=== PATIENT | male | born 1970 | race Caucasian/White ===

== ENCOUNTER 2024-06-15 01:21 | Observation (INO) | payer OTHER, SELFPAY ==
[2024-06-14 21:39] VITALS: BMI 30.6
[2024-06-14 21:42] VITALS: BP 189/118
[2024-06-14 21:49] LABS: Glucose - Point of Care 189 mg/dl (70-99)
--- NOTE | 2024-06-14 21:59 | ED.GENMED ---
History of Present Illness
General
Chief Complaint: Vomiting Blood
Source: patient
Time Seen by Provider: 06/14/24 21:52
History of Present Illness
History of Present Illness:
This patient is a 54-year-old male with a history of hypertension, diabetes no longer insulin-dependent who has been on Ozempic for short period of time but had a recent increase in his dosing this week. He also has a history of reflux but denies a
history of ulcers or heavy nonsteroidal use. He states that since early this afternoon he has had repeated episodes of vomiting which has now become blood-tinged. He initially to triage nurse was complaining of chest discomfort which is now fully
resolved and he denies pain. He denies abdominal pain or bleeding elsewhere, shortness of breath, headache, dizziness, or other complaints.
Past History
Past History
ED Past Medical History: Other (Hypertension, diabetes, GERD)
ED Past Surgical History: Other (Hernia repair)
Social History
Tobacco: Non-smoker
Drug: None
Personal:
Living: with family
Phy Exam
Physical Exam
Physical Exam:
GENERAL: Alert , in no apparent distress, actively retching
EYE: pupils equal and reactive
NECK: Supple, no significant adenopathy.
ENT: o/p clr, mm dry
CARDIAC: Regular rate and rhythm .
LUNGS: Clear breath sounds bilaterally, no acute respiratory distress, no wheezes/rales/rhonchi
ABDOMEN: Soft, without focal tenderness, no r/g, no cvat
NEUROLOGICAL: Alert and oriented, no focal neuro deficits
SKIN: Warm and dry, skin intact.
MUSCULOSKELETAL: No edema, well perfused.
PSYCH: Normal and appropriate interaction.
Course
Orders/Labs/Results
Orders:
Orders
06/14/24 21:40
Electrocardiogram (*1) Urgent
Reason for Study: Abdominal Pain
Cardiac Monitoring- Treatment ONCE
EKG- Treatment ONCE
IV Insert/Care/Rem.- Treatment PRN
06/14/24 21:51
Type+Screen Urgent
Complete Blood Count/With Diff Urgent
Comprehensive Metabolic Panel Urgent
Lipase Urgent
Troponin I Urgent
06/14/24 21:56
Chest X-ray Portable [CR Chest Portable - 1 View] Urgent
Comment:
Reason For Exam: Chest Pain
Reason Study Needs to be Portable: Patient Unstable
06/14/24 21:57
Ondansetron Injectable [Zofran] 4 mg .ROUTE .STK-MED ONE
Pantoprazole 80 mg/100 ml Nss [Protonix] 80 mg in 100 ml .ROUTE .STK-MED
Pantoprazole [Protonix IV] 80 mg .ROUTE .STK-MED ONE
06/14/24 21:59
IV Insert/Care/Rem.- Treatment PRN
0.9% Sodium Chloride 500 ml [Nss] 500 ml IV BOLUS
Pantoprazole 80 mg/100 ml Nss [Protonix] 80 mg in 100 ml IV NOW
Pantoprazole [Protonix IV] 80 mg IV NOW STA
06/14/24 22:09
Diphenhydramine [Benadryl] 25 mg IV NOW STA
Prochlorperazine [Compazine] 10 mg IV NOW STA
06/14/24 22:49
CT Abd/pelvis W Iv Cont Urgent
Comment:
Reason For Exam: repeated blood tinged emesis
Abnormal Lab Results
06/14/24 06/14/24
21:48 21:51
WBC 13.0 H 10^3/uL
(4.8-10.8)
RBC 6.13 H 10^6/uL
(4.70-6.10)
Hgb 18.3 H g/dL
(13.0-18.0)
RDW 14.6 H %
(11.5-14.5)
Abs Immat Gran (auto) 0.1 H 10^3/uL
(0-0.05)
Absolute Neuts (auto) 10.1 H 10^3/uL
(1.4-6.5)
Absolute Monos (auto) 0.7 H 10^3/uL
(0.1-0.6)
Neutrophils % 77.6 H %
(42.2-75.2)
Lymphocytes % 15.5 L %
(20.5-51.1)
Creatinine 1.6 H mg/dL
(0.7-1.3)
Glucose 244 H mg/dl
(70-99)
Calcium 11.2 H mg/dl
(8.4-10.2)
Total Bilirubin 2.0 H mg/dl
(0.2-1.3)
POC Glucose 189 H mg/dl
(70-99)
06/14/24 21:51
06/14/24 21:51
Vital Signs
Initial and Last Documented VS:
Initial Vital Signs
Pulse Resp BP Pulse Ox
93 19 189/118 100
06/14/24 21:42 06/14/24 21:42 06/14/24 21:42 06/14/24 21:42
Last Documented Vital Signs
Temp Pulse Resp BP Pulse Ox
98.2 F 91 11 188/95 99
06/14/24 22:30 06/14/24 23:45 06/14/24 23:45 06/14/24 23:00 06/14/24 23:45
*Critical Care Note
Total Time (30-74mins, 75-104mins- exclusive of procedures): 30
Update Note
Update Note:
Patient presents to the Emergency Department with ___blood-tinged vomiting
Number and Complexity of Problems Addressed at the Encounter
� Chronic conditions affecting care: Diabetes and Ozempic use
� Acute Exacerbation and/or Progression of Chronic Illness:
� Differential Diagnosis includes: But not limited to variceal bleed, reflux, ulcer, pancreatitis, etc. etc.
Amount and/or Complexity of Data to be Reviewed and Analyzed
� I performed an independent evaluation of and my interpretation is:
EKG:read by me, nsr, lad, rbbb, no acute ischemia
CT:VISION READ...SUGGESTION OF COLITIS, NO BOWEL OBSTECTUION, MILD ESOPHAGEAL WALL THICKENING
Xrays: Chest x-ray read by me NAD
Laboratory Studies: Nonspecific leukocytosis mild renal insufficiency no prior values to compare, nonspecific hyperglycemia lipase normal
Other:
� Review of other/old records reveals: None available
� Clinical information was obtained by an independent historian: and best friend who are now bedside
� Prescriptions/Medications Considered but not given:
� Further testing considered but not performed:
Risk of Complications and/or Morbidity or Mortality of Patient Management
� Social determinants of health affecting care:
� Discussion with other providers (PCP, Hospitalists, Consultants, etc):
� Escalation of care including admission/observation vs risk of discharge considered: 10:01 PM vital signs are stable, no active bleeding, patient is mostly retching but bringing up occasional small volumes of lightly
blood-tinged liquid. No coffee-ground noted. 10:48 PM vomiting has stopped patient feeling much better again denies any pain says he occasionally gets a feeling of 'heartburn'. states that he takes 8 mg of Suboxone twice daily and has been
relatively inconsistent because he is trying not to take it. He takes it for chronic pain related to neuropathy as well as a history of OUD. Abdomen remains soft and nontender.
CT reviewed by me, bladder noted to be full, will asked patient to urinate and if not able to we will straight cath. Case discussed with Dr. STANLEY TAPIA via [facility] text for admission. Symptoms may be related to Ozempic, shelly tejeda, gastritis, mild
ulcer, alcohol use, early opioid withdrawal (although I unlikely). Stable.
ED Attending Note
-
Portions of this chart may have been created with voice recognition software.� Occasional wrong word or��sound alike� substitutions may have occurred due to the inherent limitations of voice recognition software.
Discharge Plan
Departure
Patient Disposition: Admit
Date of Disposition: 06/15/24
Time of Disposition: 00:03
Admit to: Telemetry
Admit to doctor: salas
Presentation/result/management discussed w/ accepting MD/DO: Hospitalist
Condition: Fair
Discharge Problem:
Hematemesis
Referrals:
UNKNOWN - PT DOES,NOT KNOW [Family Provider] -
Interventions
Interventions:
*Risk Screen - Suicide Last Done: 06/14/24 21:42
*General Assessment Last Done: 06/14/24 21:42
*Neglect/Abuse Screening Last Done: 06/14/24 21:42
ED- Fall Risk Assessment Last Done: 06/14/24 21:54
*ED COVID-19 Vaccine History Last Done: 06/14/24 22:24
TJ-Kyjnpp-Pmvtvqsaah Assessment Last Done: 06/14/24 21:54
ED- Cardiac Assessment Last Done: 06/14/24 21:54
ED- Pulmonary Assessment Last Done: 06/14/24 21:54
Discharge Date and Time
Print Language: LIBYAN
[2024-06-14] MEDS: NSS 500 IV (22:00)
[2024-06-14 22:01] LABS: % Basophils 0.4 % (0-2); % Eosinophils 0.7 % (0-6); % Immature Granulocytes 0.4 % (0-0.5); % Lymphocytes 15.5 % (20.5-51.1); % Monocytes 5.4 % (1.7-9.3); % Neutrophils 77.6 % (42.2-75.2); Absolute Basophils 0.1 10^3/uL (0-0.2); Absolute Eosinophils 0.1 10^3/uL (0-0.7); Absolute Immature Granulocytes 0.1 10^3/uL (0-0.05); Absolute Monocytes 0.7 10^3/uL (0.1-0.6); Absolute Neutrophils 10.1 10^3/uL (1.4-6.5); Hematocrit 51.6 % (39.0-52.0); Hemoglobin 18.3 g/dL (13.0-18.0); Mean Corp Hgb Conc. 35.5 g/dL (33.0-37.0); Mean Corpuscular Hgb 29.9 pg (27.0-31.0); Mean Corpuscular Volume 84.2 fL (80.0-94.0); Nucleated Red Blood Cells % 0 % (-); Platelet Count 269 10^3/uL (130-400); Red Blood Cell Count 6.13 10^6/uL (4.70-6.10); Red Cell Dist. Width 14.6 % (11.5-14.5)
[2024-06-14] MEDS: PROTONIX IV 80 MG IV (22:01)
[2024-06-14] MEDS: PROTONIX 100 IV (22:01)
[2024-06-14] MEDS: BENADRYL 25 MG IV (22:14)
[2024-06-14] MEDS: COMPAZINE 10 MG IV (22:14)
[2024-06-14 22:25] LABS: ALT (SGPT) 30 U/L (0-50); AST (SGOT) 33 U/L (17-59); Albumin 4.7 g/dl (3.5-5.0); Alkaline Phosphatase 115 U/L (38-126); Blood Urea Nitrogen 17 mg/dl (9-20); Calcium 11.2 mg/dl (8.4-10.2); Carbon Dioxide 26 mmol/L (22-30); Chloride 100 mmol/L (98-107); Estimated Creatinine Clearance 51 ml/min; Glucose 244 mg/dl (70-99); Lipase 54 U/L (23-300); Potassium 4.4 mmol/L (3.5-5.1); Sodium 135 mmol/L (135-145); Total Protein 7.1 g/dl (6.3-8.2); eGFR 50.26
[2024-06-14 22:26] LABS: Troponin I < 0.012 ng/ml
[2024-06-14 23:00] VITALS: BP 188/95
[2024-06-15] VITALS: BP 200/99
--- NOTE | 2024-06-15 00:43 | HPS.HSE ---
Family Physician
-
Family Physician: NOT KNOW UNKNOWN - PT DOES
Chief Complaint
-
N/V
History of Present Illness
Patient is a 54y M with PMH significant for hypertension and DM-II who presents to ED complaining of N/V. Patient states that he was nauseated and had a single episode of emesis last PM. Today he ate a sandwich around 2 PM and his N/V returned.
He had intractable symptoms of N/V with burning epigastric pain. he then began to 'dry heave' and had emesis consisting of small amounts of saliva / sputum mixed with bright red blood. Patient reports small amounts of blood streaked emesis. No
clots. No lightheadedness / dizziness. No diarrhea, black or bloody stools. Patient denies any prior history of similar symptoms.
Patient states that he is on Ozempic and that his dose was recently increased to 1mg weekly. He took this for the first time on Saturday and states that he immediately felt 'flushed and sweaty'.
Medical History
Past Medical History
Past Medical History: Reports Other
Additional Past Medical History:
Hypertension
DM-II
Anxiety / Depression
Past Surgical History: Reports Other
Additional Past Surgical History:
Hernia Repair
Social History
Tobacco: Smoker (Current every day smoker. Approx 30 pack years total use.)
Alcohol: None (Quit drinking entirely after diagnosed with DM.)
Drug: Former User (History of opioid abuse. No IVDA. Sober x 6 years.)
Family History
Family History: CAD
Allergies / Home Medications
Allergies reflects when Allergies were last updated in [employer].
Home Medications with original date entered in [employer]
Allergy/Medication List:
Allergies
Allergy/AdvReac Type Severity Reaction Status Date / Time
No Known Allergies Allergy Unverified 06/14/24 21:42
Home Medications
lisinopril 10 mg tablet 10 mg PO DAILY 06/15/24
omeprazole 20 mg tablet,delayed release 20 mg PO DAILY 06/15/24
quetiapine 50 mg tablet (Seroquel) 100 mg PO HS 06/15/24
semaglutide 1 mg/dose (4 mg/3 mL) subcutaneous pen injector (Ozempic) 1 mg SC QWEEK 06/15/24
Review of Systems
-
History Source: Patient
A 12 point ROS was completed and negative except as noted: Yes
Constitutional: Reports Fatigue; Denies Fever or Chills
Respiratory: Denies Cough or Trouble Breathing
Cardiac: Denies Chest Pain or Palpitations
Abdomen/GI: Reports Abdominal Pain (burning epigastric pain.), Nausea and Vomiting; Denies Diarrhea, Constipated, Bloody Stools or Black Stools
: Denies Dysuria or Frequency
Musculoskeletal: Denies Joint Pain or Edema
Neurological: Denies Dizzy or Headache
Psych: Denies Depression or Anxiety
Physical Exam
Vital Signs
Vital Signs
Temp Pulse Resp BP Pulse Ox
98.2 F 91 11 200/99 100
06/14/24 22:30 06/15/24 00:15 06/14/24 23:45 06/15/24 00:00 06/15/24 00:15
Physical Exam
General: Other (54y M in no acute distress.)
HEENT: Moist mucous membranes and PERRLA
Respiratory: Clear; No Wheezes, Rales or Rhonchi
Cardiac: S1/S2 and Regular Rhythm; No Murmur
GI: Soft, Non Tender, Non Distended and Normal Bowel Sounds
Musculoskeletal: No Clubbing, No Cyanosis and No Edema
Neuro: AO x 3
Laboratory Results
-
06/14/24 21:51
06/14/24 21:51
Laboratory Results
Total Bilirubin 2.0 mg/dl (0.2-1.3) H 06/14/24 21:51
AST 33 U/L (17-59) 06/14/24 21:51
ALT 30 U/L (0-50) 06/14/24 21:51
Alkaline Phosphatase 115 U/L (38-126) 06/14/24 21:51
Troponin I < 0.012 ng/ml 06/14/24 21:51
Lipase 54 U/L (23-300) 06/14/24 21:51
Impression/Plan
-
A/P: Patient is a 54y M with PMH significant for hypertension and DM-II who presents to ED complaining of N/V x 24 hours.
Intractable N/V
Blood Streaked Emesis
GERD
- Observe overnight for further evaluation and treatment.
- Symptoms very likely secondary to recent dose increase in Ozempic - hold further doses.
- Supportive care including IVFs, antiemetics, etc.
- PPI infusion started in the ED - change to BID PPI once completed.
- GI evaluation for any additional recommendations / possible endoscopic examination.
- Patient reports chronic / poorly controlled symptoms of GERD / heartburn.
- Follow for any further emesis, bleeding, etc.
- Hemodynamically stable (actually hypertensive and polycythemic).
Benign Hypertension
- Poorly controlled- likely in part due to acute presentation, but suspect chronic poor control as well.
- Hold lisinopril for now (see below).
- Begin amlodipine and adjust dose as needed.
- Hydralazine as needed for very high BPs.
Renal Insufficiency
- SCr = 1.6 with no prior values for comparison. ? DAPHNEY v CKD.
- Certainly possible degree of DAPHNEY given emesis / volume losses and MJ use.
- Hold lisinopril acutely.
- IVF overnight and follow for changes in renal function.
DM-II
- Currently diet-controlled. Prescribed metformin but does not take this as he feels it exacerbates his GERD.
- Patient has DEXCOM and notes that glucose has been well-controlled on no medication (even before beginning Ozempic).
- Hold Ozempic as noted above.
- Follow glucose and cover with SSI as needed.
- Check A1C.
DVT Prophylaxis: SCDs
Code Status: Full
[2024-06-15 01:00] VITALS: BP 184/97
[2024-06-15 02:33] LABS: Glucose - Point of Care 129 mg/dl (70-99)
[2024-06-15 02:41] VITALS: BMI 29.5
[2024-06-15 02:42] VITALS: BP 141/92; BP 156/96; BP 172/90; PULSE 86; PULSE 89; PULSE 97
[2024-06-15] MEDS: ZOFRAN 4 MG IV (02:44)
[2024-06-15] MEDS: NSS 1000 IV ×3 (03:26→18:00)
[2024-06-15 04:25] LABS: Hematocrit 51.4 % (39.0-52.0); Hemoglobin 17.7 g/dL (13.0-18.0); Mean Corp Hgb Conc. 34.4 g/dL (33.0-37.0); Mean Corpuscular Hgb 29.3 pg (27.0-31.0); Mean Corpuscular Volume 85.1 fL (80.0-94.0); Mean Platelet Volume 10.4 fL (7.4-10.4); Platelet Count 266 10^3/uL (130-400); Red Blood Cell Count 6.04 10^6/uL (4.70-6.10); Red Cell Dist. Width 14.4 % (11.5-14.5); White Blood Cell Count 19.1 10^3/uL (4.8-10.8)
[2024-06-15 05:08] LABS: Blood Urea Nitrogen 18 mg/dl (9-20); Calcium 10.6 mg/dl (8.4-10.2); Carbon Dioxide 27 mmol/L (22-30); Chloride 102 mmol/L (98-107); Estimated Creatinine Clearance 62 ml/min; Glucose 140 mg/dl (70-99); Potassium 4.8 mmol/L (3.5-5.1); Sodium 138 mmol/L (135-145); eGFR > 60.00
[2024-06-15 06:00] VITALS: BMI 29.5
--- NOTE | 2024-06-15 07:34 | PTCARENOTE ---
Pt admitted to the unit from ED with Protonix gtt infusing. Pt ambulated self with nursing staff to bed. Once in bed, pt reported feeling lightheaded and dizzy. Pt educated to use urinal, to stay in bed, and to use the call guillen. Pt vomited
thick/thin green liquid. Medication administered. See MAR. Pt oriented to room with call guillen in reach. Plan of care ongoing.
[2024-06-15 07:40] VITALS: BP 146/89
[2024-06-15 08:36] LABS: Glycohemoglobin (HgbA1c) 7.7 % (4.0-5.6)
[2024-06-15 08:39] LABS: Glucose - Point of Care 161 mg/dl (70-99)
--- NOTE | 2024-06-15 08:45 | W.PN.HOSP.TC ---
Today's Communication/Plan
-
Antiemetics, Subotex, Sucralfate.
Assessment / Plan
Assessment / Plan
Physical exam:
General: Well Developed, Well Nourished and No Apparent Distress
HEENT: Normocephalic, Atraumatic and Moist Mucous Membranes
Respiratory: Clear to Auscultation; Negative Wheezes, Rales or Rhonchi
Cardiac: Regular Rhythm and S1/S2
GI: Soft, Nontender and Nondistended
Musculoskeletal: No Clubbing, No Cyanosis and No Edema
Neuro: Awake, Alert and Oriented
Psych: Calm
A/P:
Intractable N/V
Blood Streaked Emesis
GERD
- Observe overnight for further evaluation and treatment.
- Symptoms very likely secondary to recent dose increase in Ozempic - hold further doses.
- Supportive care including IVFs, antiemetics, etc.
- PPI infusion started in the ED - change to BID PPI once completed.
- GI evaluation for any additional recommendations / possible endoscopic examination.
- Patient reports chronic / poorly controlled symptoms of GERD / heartburn.
- Follow for any further emesis, bleeding, etc.
- Hemodynamically stable (actually hypertensive and polycythemic).
- Discussed with GI today
-CLD
-Avoid narcotics but resume his OP Subutex to avoid withdrawal
-Anabolics have demonstrated slight increased risk of a fib, vte, and daphney but can resume upon d/c if deemed necessary
Benign Hypertension
- Poorly controlled- likely in part due to acute presentation, but suspect chronic poor control as well.
- Hold lisinopril for now (see below).
- Begin amlodipine and adjust dose as needed.
- Hydralazine as needed for very high BPs.
Renal Insufficiency
- SCr = 1.6 with no prior values for comparison. ? DAPHNEY v CKD.
- Certainly possible degree of DAPHNEY given emesis / volume losses and MJ use.
- Hold lisinopril acutely.
- IVF overnight and follow for changes in renal function.
DM-II
- Currently diet-controlled. Prescribed metformin but does not take this as he feels it exacerbates his GERD.
- Patient has DEXCOM and notes that glucose has been well-controlled on no medication (even before beginning Ozempic).
- Hold Ozempic as noted above.
- Follow glucose and cover with SSI as needed.
- Check A1C.
DVT Prophylaxis: SCDs
Code Status: Full
Anticipated Discharge: 24 - 48 hours
Subjective/Interval History
-
Date of Service: June 15, 2024
still nauseous and c/o heartburn
Objective Data
-
Labs:
Laboratory Results
06/14/24 06/15/24 06/15/24
21:51 04:14 04:15
WBC 13.0 H 19.1 H
Hgb 18.3 H 17.7
Hct 51.6 51.4
Plt Count 269 266
Sodium 135 138
Potassium 4.4 4.8
Chloride 100 102
Carbon Dioxide 26 27
BUN 17 18
Creatinine 1.6 H 1.3
Glucose 244 H 140 H
Calcium 11.2 H 10.6 H
Total Bilirubin 2.0 H
AST 33
ALT 30
Alkaline Phosphatase 115
Vital Signs:
Vital Signs
Temp Pulse Resp BP Pulse Ox
98.8 F 99 19 146/89 97
06/15/24 07:40 06/15/24 07:40 06/15/24 07:40 06/15/24 07:40 06/15/24 07:40
I&O
06/14/24 06/15/24 06/16/24
06:59 06:59 06:59
Output Total 100 / 100 70 / 70
Balance -100 / -100 -70 / -70
[2024-06-15] MEDS: NOVOLOG FLEXPEN-LOW RESISTANCE 1 UNITS SC ×3 (09:42→18:00)
[2024-06-15] MEDS: NORVASC 5 MG PO (09:42)
[2024-06-15] MEDS: COMPAZINE 10 MG IV ×2 (09:43→20:21)
--- NOTE | 2024-06-15 09:57 | CON.GI ---
Addendum entered and electronically signed by Erinn Perez DO 06/15/24 11:28:
I saw and examined the patient.
The DISPENSING AUDIOLOGIST or PA's note was reviewed and I agree with the note.
Comment: Agree with assessment and plan as outlined below. Suspect recent dose increase in Ozempic is playing a self role in current symtpoms. I do not feel he had real hematemesis, likely some esophagitis, which correlates to findings on CT scan.
Possibly some viral gastroenteritis as does seem to have severe sweats, chills and leukocytosis-- though could be leukamoid reaction. Labs with hemoconcentration, so definitely dehydrated. Recommend PPI, antiemetics. Total bilirubin mildly elevated
to 2.0, check direct bilirubin, could be [place], all other liver enzymes are normal.
Plan:
-check direct bili
-supportive care
-PPI, antiemetics
-no plans for inpatient EGD as no signs of active bleeding and need to wait 1 week following Ozempic for nonurgent EGD per anesthesia, would plan to pursue endoscopic eval as an outpatient unless he develops signs of active GI bleeding
-needs screening colonoscopy as well
Original Note:
Consultation
-
Date/Time Consultation Requested: 06/15/24 0229
Date/Time Consultation Performed: 06/15/24 1004
Requesting Provider: Dr. Barker
Performing Provider: Dr. Perez/LANA Garay
Reason for Consultation: N/V coffee ground emesis
Medical History
Chief Complaint / HPI
Chief Complaint: n/v
History of Present Illness:
54-year-old male with past medical history of hypertension, hyperlipidemia, GERD, neuropathy, anxiety and diabetes recent A1c of 9 (approximately 3 months ago). He was started on Ozempic at that time. He recently increased his dose from 0.5 to 1
mg last . The patient also uses testosterone as well as the anabolic steroid Masteron for bodybuilding. Patient has a prior history of drug abuse in the form of cocaine and heroin in the past. He states he has been sober for 6 years. He
states he usually has nausea, early satiety and intermittent vomiting associated with Ozempic since starting it however with this increased dose he had significant symptoms. The patient states for the past 18 hours he has had constant vomiting that
started out as green bile. He he then had some red streaks of blood that he noticed in it followed by brown emesis. At that point he came to the ER. We are asked to evaluate for the same. He was given Compazine in the ER followed by Kristi and
continues to vomit at this time. This morning I witnessed him vomiting that was green bile with less than 5 brown specks. Patient states he has had approximately 20-year history of heartburn and takes omeprazole daily. The patient is a daily
smoker. Prior alcohol however none since diagnosed with diabetes. The patient has never had an EGD or colonoscopy. He has never been seen by GI. He has no family history of GI malignancy that he is aware of however he states he has been
estranged from his family for 30 years. The patient states that he has chills when he is vomiting otherwise he denies any fevers, abdominal pain, melena, hematochezia, dysphagia or odynophagia. WBC 19.1, hemoglobin 17.7 down from 18.3 with IV
fluids, hematocrit 51.4, platelets 266, sodium 138, potassium 4.8, chloride 102, CO2 27, BUN 18, creatinine 1.3 (down from 1.6), glucose 140 down from 244, hemoglobin A1c 7.7, calcium 10.6, total bilirubin 2.0 (awaiting fractionation), AST 33, ALT
30, alk phos 115 troponin less than 0.012, lipase 54. CT of the abdomen and pelvis with IV contrast shows small hiatal hernia with some fatty wall thickening of the distal esophagus which can be seen in the setting of esophagitis (Please see below
for full CT report).
Past Medical History
Past Medical History: GERD, HTN, Hypercholesterolemia, NIDDM and Other (Neuropathy, anxiety)
Past Surgical History: Other (Umbilical hernia repair)
Social History
Tobacco: Smoker
Alcohol: Former
Drug: Former User (Heroin and cocaine, quit 6 years ago)
Family History
Family History: Other (No known family history of GI issues or inflammatory bowel disease although has been estranged from family for 30 years)
Allergies / Home Medications
Allergy/AdvReac Type Severity Reaction Status Date / Time
No Known Allergies Allergy Unverified 06/14/24 21:42
�Medication �Instructions �Recorded
lisinopril 10 mg tablet 10 mg PO DAILY 06/15/24
omeprazole 20 mg tablet,delayed 20 mg PO DAILY 06/15/24
release
quetiapine 50 mg tablet (Seroquel) 100 mg PO HS 06/15/24
semaglutide 1 mg/dose (4 mg/3 mL) 1 mg SC QWEEK 06/15/24
subcutaneous pen injector (Ozempic)
Review of Systems
-
All other systems: A 12 pt ROS was Negative except as stated above in HPI
Vital Signs
Temp Pulse Resp BP Pulse Ox
98.8 F 99 19 146/89 97
06/15/24 07:40 06/15/24 07:40 06/15/24 07:40 06/15/24 07:40 06/15/24 07:40
Physical Exam
Exam
General: Other (Patient actively vomiting, overly developed muscles)
HEENT: Anicteric
Respiratory: Clear
Cardiac: Regular Rhythm
GI: Soft, Non Tender, Non Distended and Normal Bowel Sounds
Musculoskeletal: No Edema
Skin: Warm and Dry
Psych: Calm
Results
WBC 19.1 10^3/uL (4.8-10.8) H 06/15/24 04:15
Hgb 17.7 g/dL (13.0-18.0) 06/15/24 04:15
Hct 51.4 % (39.0-52.0) 06/15/24 04:15
MCV 85.1 fL (80.0-94.0) 06/15/24 04:15
Plt Count 266 10^3/uL (130-400) 06/15/24 04:15
Absolute Neuts (auto) 10.1 10^3/uL (1.4-6.5) H 06/14/24 21:51
Sodium 138 mmol/L (135-145) 06/15/24 04:14
Potassium 4.8 mmol/L (3.5-5.1) 06/15/24 04:14
Chloride 102 mmol/L (98-107) 06/15/24 04:14
Carbon Dioxide 27 mmol/L (22-30) 06/15/24 04:14
BUN 18 mg/dl (9-20) 06/15/24 04:14
Creatinine 1.3 mg/dL (0.7-1.3) 06/15/24 04:14
Calcium 10.6 mg/dl (8.4-10.2) H 06/15/24 04:14
Total Bilirubin 2.0 mg/dl (0.2-1.3) H 06/14/24 21:51
AST 33 U/L (17-59) 06/14/24 21:51
ALT 30 U/L (0-50) 06/14/24 21:51
Alkaline Phosphatase 115 U/L (38-126) 06/14/24 21:51
Lipase 54 U/L (23-300) 06/14/24 21:51
Diagnostic Image Results:
Chest x-ray:
IMPRESSION:
No evidence of active cardiopulmonary disease.
CT of the abdomen and pelvis with IV contrast 06/14/2024:
IMPRESSION:
Small hiatal hernia with circumferential wall thickening of the distal esophagus which can be seen in the setting of esophagitis.
Decompressed descending and descending colon without significant wall thickening or surrounding inflammatory changes to suggest the presence of colitis or diverticulitis.
Small fat-containing left inguinal hernia with mild superimposed inflammatory changes.
A preliminary interpretation was provided by [facility] teleradiology service. The above report agrees with the initial interpretation.
Electronically signed by Alejandro Stearns DO, 06/15/2024 8:57 AM
Prior GI Procedures:
EGD: Never
Colonoscopy: Never
Assessment / Plan
-
54-year-old male with past medical history of hypertension, hyperlipidemia, GERD, neuropathy, anxiety and diabetes recent A1c of 9 (approximately 3 months ago). He was started on Ozempic at that time. He recently increased his dose from 0.5 to 1
mg last . The patient also uses testosterone as well as the anabolic steroid Masteron for bodybuilding. Patient has a prior history of drug abuse in the form of cocaine and heroin in the past. He states he has been sober for 6 years. He
states he usually has nausea, early satiety and intermittent vomiting associated with Ozempic since starting it however with this increased dose he had significant symptoms. The patient states for the past 18 hours he has had constant vomiting that
started out as green bile. He he then had some red streaks of blood that he noticed in it followed by brown emesis. At that point he came to the ER. We are asked to evaluate for the same. WBC 19.1, hemoglobin 17.7 down from 18.3 with IV fluids,
hematocrit 51.4, platelets 266, sodium 138, potassium 4.8, chloride 102, CO2 27, BUN 18, creatinine 1.3 (down from 1.6), glucose 140 down from 244, hemoglobin A1c 7.7, calcium 10.6, total bilirubin 2.0 (awaiting fractionation), AST 33, ALT 30, alk
phos 115 troponin less than 0.012, lipase 54. CT of the abdomen and pelvis with IV contrast shows small hiatal hernia with some fatty wall thickening of the distal esophagus which can be seen in the setting of esophagitis.
Impression:
Intractable nausea and vomiting-> likely secondary to recent increase in Ozempic dose. Patient injected on (1 mg)
Inability to tolerate oral intake
Self-reported streaks of red blood, currently bilious in nature with a few specks less than 5 of coffee-ground material
Diabetes-> per patient A1c of 9 3 months ago. Currently 7.7
GERD-> 20-year history of gastroesophageal reflux disease on omeprazole as an outpatient with worsening symptoms since starting Ozempic.
Plan:
-Continue pantoprazole, can decrease to 40 mg IV twice daily
-Await fractionation of bilirubin
-Trend hemoglobin
-IV fluids as patient cannot tolerate p.o. intake-> currently on normal saline at 125 cc an hour
-Antiemetics, patient had 1 dose of Compazine last night and switched over to Zofran with breakthrough nausea and vomiting. Will retry Compazine again. If breakthrough with Compazine will give 1 dose of Reglan to see if this works.
-Would minimize narcotic use. Currently no abdominal pain to palpation. Narcotics worsen gastric motility.
-Hold on EGD for now as no active signs of bleeding. If with active signs of bleeding will proceed with EGD. Otherwise we will perform as an outpatient.
-Patient also needs colonoscopy for screening purposes as an outpatient as well.
-Further recommendations to be forthcoming.
-
-
Thank you for consultation and allowing me to participate in the patient's care. Please call the english as a second language teacher GI physician during the after hours with any questions or concerns.
[2024-06-15 10:40] LABS: Direct Bilirubin 0.3 mg/dl (0.0-0.4)
[2024-06-15 11:40] LABS: Glucose - Point of Care 172 mg/dl (70-99)
--- NOTE | 2024-06-15 12:11 | CM ---
IA completed. Observation form signed & placed in chart.
Dx: Gastritis/Esophagitis
PMH: HTN, DMII, anxiety, depression
Patient lives with in trailer. 3 steps to get in,
PLOF: Independent, driving
Concerns of buying food, paying utilities.
[employer] resources given to patient.
Food pantry, help pay for utilities.
Discharge to home when stable. or friend to transport.
PCP: Erica Pritchett
Pharmacy: [facility]
PLAN: Discharge to home when stable.
[2024-06-15] MEDS: SUBUTEX 8 MG SL ×2 (13:10→21:12)
[2024-06-15 14:25] VITALS: BP 144/67
[2024-06-15] MEDS: CARAFATE 1 GRAM PO ×3 (14:47→22:39)
[2024-06-15 16:57] LABS: Glucose - Point of Care 172 mg/dl (70-99)
[2024-06-15 21:25] LABS: Glucose - Point of Care 141 mg/dl (70-99)
[2024-06-15] MEDS: NON-FORMULARY ITEM 100 MG PO (22:41)
[2024-06-15 23:10] VITALS: BP 159/83; BP 172/87; BP 187/96; PULSE 92; PULSE 93
--- NOTE | 2024-06-16 01:53 | PTCARENOTE ---
~00:40 nursing staff heard pt yell out. Nursing staff found pt laying across the bed with legs hanging out of bed. Pt reported 'I feel like I'm on the wall. I need some air. I'm having a panic attack.' Notified covering DESULFURIZER OPERATOR. No new orders at this
time. Standing next to bed, pt vomited brownish/green emesis. Pt admitted d/t vomiting. Pt reported 'I need some air.' This RN suggested walking the halls and walked with the pt. Pt spoke with on his cell while walking the hilario. Upon returning
to room, pt reported feeling better. Fan set up to keep pt cool. Plan of care ongoing.
[2024-06-16] MEDS: NSS 1000 IV ×3 (03:50→18:07)
[2024-06-16 07:17] LABS: Glucose - Point of Care 135 mg/dl (70-99)
[2024-06-16 07:38] VITALS: BP 118/58
[2024-06-16] MEDS: SUBUTEX 8 MG SL ×2 (07:39→20:23)
[2024-06-16] MEDS: NORVASC 5 MG PO (07:39)
[2024-06-16] MEDS: COMPAZINE 10 MG IV (07:40)
[2024-06-16] MEDS: CARAFATE 1 GRAM PO ×4 (07:40→22:04)
[2024-06-16] MEDS: NOVOLOG FLEXPEN-LOW RESISTANCE SC ×2 (07:41→12:37)
[2024-06-16 07:59] LABS: Hematocrit 47.3 % (39.0-52.0); Hemoglobin 16.1 g/dL (13.0-18.0); Mean Corpuscular Hgb 29.5 pg (27.0-31.0); Mean Corpuscular Volume 86.6 fL (80.0-94.0); Mean Platelet Volume 10.1 fL (7.4-10.4); Platelet Count 232 10^3/uL (130-400); Red Blood Cell Count 5.46 10^6/uL (4.70-6.10); Red Cell Dist. Width 14.6 % (11.5-14.5)
[2024-06-16 08:59] LABS: Blood Urea Nitrogen 19 mg/dl (9-20); Calcium 8.8 mg/dl (8.4-10.2); Carbon Dioxide 29 mmol/L (22-30); Chloride 105 mmol/L (98-107); Estimated Creatinine Clearance 73 ml/min; Glucose 142 mg/dl (70-99); Sodium 138 mmol/L (135-145); eGFR > 60.00
--- NOTE | 2024-06-16 09:10 | W.PN.HOSP.TC ---
Today's Communication/Plan
-
CLD
Assessment / Plan
Assessment / Plan
Physical exam:
General: Well Developed, Well Nourished and No Apparent Distress
HEENT: Normocephalic, Atraumatic and Moist Mucous Membranes
Respiratory: Clear to Auscultation; Negative Wheezes, Rales or Rhonchi
Cardiac: Regular Rhythm and S1/S2
GI: Soft, Nontender and Nondistended
Musculoskeletal: No Clubbing, No Cyanosis and No Edema
Neuro: Awake, Alert and Oriented
Psych: Calm
A/P:
Intractable N/V
Blood Streaked Emesis
GERD
- GI input appreciated
-Continue PPI and Carafate
-CLD-->NPO--> CLD trial again today
-Avoid narcotics but resume his OP Subutex to avoid withdrawal
-If worsens may need to implement opiate withdrawal
-Anabolics have demonstrated slight increased risk of a fib, vte, and daphney but can resume upon d/c if deemed necessary
Leukocytosis
-Reactive
-WBC 19---> 11
Benign Hypertension
- Improved
- Hold lisinopril for now (see below).
- Begin amlodipine and adjust dose as needed.
- Hydralazine as needed for very high BPs.
DAPHNEY
-Creatinine 1.1 today
-Continue IV fluids but decrease rate
-Creatinine 1.6 upon admission
-Avoid nephrotoxic
Hypercalcemia
Resolved with fluids
DM-II
- Currently diet-controlled. Prescribed metformin but does not take this as he feels it exacerbates his GERD.
- Patient has DEXCOM and notes that glucose has been well-controlled on no medication (even before beginning Ozempic).
- Hold Ozempic as noted above.
- Follow glucose and cover with SSI as needed.
- Check A1C--> 7.7
DVT Prophylaxis: SCDs
Code Status: Full
Anticipated Discharge: 24 - 48 hours
Subjective/Interval History
-
Date of Service: June 16, 2024
Patient with nausea on and off. Feels anxious.
Objective Data
-
Labs:
Laboratory Results
06/16/24
07:37
WBC 11.0 H
Hgb 16.1
Hct 47.3
Plt Count 232
Sodium 138
Potassium 4.0
Chloride 105
Carbon Dioxide 29
BUN 19
Creatinine 1.1
Glucose 142 H
Calcium 8.8 D
Vital Signs:
Vital Signs
Temp Pulse Resp BP Pulse Ox
98.3 F 89 18 118/58 98
06/16/24 07:38 06/16/24 07:38 06/16/24 07:38 06/16/24 07:38 06/16/24 07:38
I&O
06/15/24 06/16/24 06/17/24
06:59 06:59 06:59
Intake Total 1740 / 1740
Output Total 100 / 100 1545 / 1545
Balance -100 / -100 195 / 195
--- NOTE | 2024-06-16 10:18 | W.PN.GI.CBS2 ---
Addendum entered and electronically signed by Erinn Perez DO 06/16/24 12:24:
I saw and examined the patient.
The SLOT MACHINE REPAIRER or PA's note was reviewed and I agree with the note.
Comment: Agree with plan as outlined below. Optimize acid suppression, can add carafate QID x1-2 weeks as needed. Likely 2/2 Ozempic use. There does seem to be a component of withdrawal on exam. Evidence of distal esophageal thickening, should
pursue EGD as an outpatient, this can be seen with esophagitis, but should rule out alterative etiologies such as Barretts esophagus or malignancy. Information for the GI clinic was provided to patient and he was advised to schedule an appointment
with us. He also requires a colonoscopy for CRC screening.
GI will sign off, please call with questions.
Original Note:
Today's Communication / Plan
-
as per plan
Assessment / Plan
-
54-year-old male with past medical history of hypertension, hyperlipidemia, GERD, neuropathy, anxiety and diabetes recent A1c of 9 (approximately 3 months ago). He was started on Ozempic at that time. He recently increased his dose from 0.5 to 1
mg last . The patient also uses testosterone as well as the anabolic steroid Masteron for bodybuilding. Patient has a prior history of drug abuse in the form of cocaine and heroin in the past. He states he has been sober for 6 years. He
states he usually has nausea, early satiety and intermittent vomiting associated with Ozempic since starting it however with this increased dose he had significant symptoms. The patient states for the past 18 hours he has had constant vomiting that
started out as green bile. He he then had some red streaks of blood that he noticed in it followed by brown emesis. At that point he came to the ER. We are asked to evaluate for the same. WBC 19.1, hemoglobin 17.7 down from 18.3 with IV fluids,
hematocrit 51.4, platelets 266, sodium 138, potassium 4.8, chloride 102, CO2 27, BUN 18, creatinine 1.3 (down from 1.6), glucose 140 down from 244, hemoglobin A1c 7.7, calcium 10.6, total bilirubin 2.0 (awaiting fractionation), AST 33, ALT 30, alk
phos 115 troponin less than 0.012, lipase 54. CT of the abdomen and pelvis with IV contrast shows small hiatal hernia with some fatty wall thickening of the distal esophagus which can be seen in the setting of esophagitis.
Impression:
Intractable nausea and vomiting-> likely secondary to recent increase in Ozempic dose. Patient injected on (1 mg). Recommend follow up with PCP to discuss dosing going forward.
Inability to tolerate oral intake, trialed clears last evening unable to tolerate.
Self-reported streaks of red blood, currently bilious in nature with a few specks less than 5 of coffee-ground material. No futher signs of bleeding.
Diabetes-> per patient A1c of 9 3 months ago. Currently 7.7
GERD-> 20-year history of gastroesophageal reflux disease on omeprazole as an outpatient with worsening symptoms since starting Ozempic.
Plan:
-Continue pantoprazole, can decrease to 40 mg BID. Would continue this as outpatient until seen in follow up. Patient will need EGD as outpatient.
-Continue Carafate QID (2 weeks would be okay)
-IV fluids as patient cannot tolerate p.o. intake-> currently on normal saline at 125 cc an hour per IM
-Antiemetics, Patient doing ok on Compazine. Zofran did not help. Concern for Reglan with Seroquel. Would not start unless absolutely necessary and only try one dose.
-Would minimize narcotic use. Currently no abdominal pain to palpation. Narcotics worsen gastric motility. Dilaudid was stopped. Patient on Suboxone for prior heroin addiction.
-Patient also needs colonoscopy for screening purposes as an outpatient as well.
-It may just take a bit of time to get through this episode of N/V as Ozempic will wear off until Sat/. Continue supportive care. Clear liquids-> Full liquids-> low residue diet/low glycemic index diet advancement.
-Patient given our business card to be able to make follow up appt. It is recommended that he have appt with EGD/Colonoscopy to be scheduled (two separate procedures given Ozempic use/prep).
Subjective
Subjective
Date of Service: June 16, 2024
Patient started on cklear liquids last evening however vomited them up. No signs of bleeding. Patient feels that Compazine works well for him. He was made NPO since that time with no further vomiting. Denies any abdominal pain. WBC coming down and
is 11.0 (19.1. Hgb 16.1 (17.7) however has been on IVF at 125 cc/hr. Patient without any further heartburn on Carafate QID (can stay on for 2 weeks). Was on Pantoprazole gtt. Will need to continue on Pantoprazole BID, until follow up as outpatient
and EGD can be performed given thickening seen on CT. Will need outpatient follow up. Our card was given for follow up. Patient states that he would like to possibly re trial clear again later. Still with some mild nausea. Would continue Compazine.
Objective
Data Reviewed
Laboratory Data:
Laboratory Results
06/16/24 07:37
06/16/24 07:37
Laboratory Results
Total Bilirubin 2.0 mg/dl (0.2-1.3) H 06/14/24 21:51
AST 33 U/L (17-59) 06/14/24 21:51
ALT 30 U/L (0-50) 06/14/24 21:51
Alkaline Phosphatase 115 U/L (38-126) 06/14/24 21:51
Lipase 54 U/L (23-300) 06/14/24 21:51
Vital Signs and I&O:
Vital Signs
Temp Pulse Resp BP Pulse Ox
98.3 F 89 18 118/58 98
06/16/24 07:38 06/16/24 07:38 06/16/24 07:38 06/16/24 07:38 06/16/24 07:38
I&O
06/15/24 06/16/24 06/17/24
06:59 06:59 06:59
Intake Total 1740 / 1740
Output Total 100 / 100 1545 / 1545
Balance -100 / -100 195 / 195
Physical Exam
Physical Exam
HEENT: Anicteric
Cardiology: Normal Sinus Rhythm
Pulmonary: Clear (anterior)
GI: Soft, Non Distended, Non Tender and Normal Bowel Sounds
Neuro: Non Focal
[2024-06-16] MEDS: NSS (PRESERVATIVE FREE) 10 ML IV ×2 (10:44→20:26)
[2024-06-16] MEDS: PROTONIX IV 40 MG IV ×2 (10:44→20:26)
[2024-06-16 12:31] LABS: Glucose - Point of Care 123 mg/dl (70-99)
[2024-06-16 14:30] VITALS: BP 179/101
[2024-06-16] MEDS: APRESOLINE 10 MG IV ×2 (15:13→22:44)
[2024-06-16 15:47] LABS: Amphetamines Negative (Negative); Barbiturates Negative (Negative); Benzodiazepines Negative (Negative); Buprenorphine Positive (Negative); Cocaine Negative (Negative); Marijuana Negative (Negative); Methadone Negative (Negative); Methamphetamines Negative (Negative); Opiates Negative (Negative); Phencyclidine Negative (Negative); Tricyclic Antidepressants Positive (Negative)
[2024-06-16 16:03] LABS: Fentanyl, Urine Negative (Negative)
[2024-06-16 16:34] LABS: Glucose - Point of Care 150 mg/dl (70-99)
[2024-06-16] MEDS: NOVOLOG FLEXPEN-LOW RESISTANCE 1 UNITS SC (18:05)
[2024-06-16 19:15] VITALS: BP 165/82
[2024-06-16 21:29] LABS: Glucose - Point of Care 160 mg/dl (70-99)
[2024-06-16] MEDS: NON-FORMULARY ITEM PO (22:15)
[2024-06-16 23:26] VITALS: BP 190/109; BP 199/92; BP 202/108; PULSE 84; PULSE 90; PULSE 92
[2024-06-17 03:30] VITALS: BP 175/67
[2024-06-17] MEDS: COMPAZINE 10 MG IV (03:36)
--- NOTE | 2024-06-17 03:36 | PTCARENOTE ---
Pt rang call guillen stating he felt nauseous, dry heaving and vomited a small amount of bile into basin. PRN Compazine given.
[2024-06-17] MEDS: NSS 1000 IV (03:42)
[2024-06-17 07:20] VITALS: BP 174/83; BP 195/97; BP 195/98; PULSE 85; PULSE 86
[2024-06-17] MEDS: CARAFATE 1 GRAM PO ×2 (07:21→11:31)
[2024-06-17] MEDS: PROTONIX IV 40 MG IV (07:22)
[2024-06-17] MEDS: SUBUTEX 8 MG SL (07:22)
[2024-06-17] MEDS: NSS (PRESERVATIVE FREE) 10 ML IV (07:22)
[2024-06-17] MEDS: NORVASC 5 MG PO (07:22)
[2024-06-17 07:29] LABS: Glucose - Point of Care 135 mg/dl (70-99)
[2024-06-17] MEDS: NOVOLOG FLEXPEN-LOW RESISTANCE SC (07:36)
--- NOTE | 2024-06-17 09:06 | W.PN.HOSP.TC ---
Today's Communication/Plan
-
Discharge planning today
Assessment / Plan
Assessment / Plan
Physical exam:
General: Well Developed, Well Nourished and No Apparent Distress
HEENT: Normocephalic, Atraumatic and Moist Mucous Membranes
Respiratory: Clear to Auscultation; Negative Wheezes, Rales or Rhonchi
Cardiac: Regular Rhythm and S1/S2
GI: Soft, Nontender and Nondistended
Musculoskeletal: No Clubbing, No Cyanosis and No Edema
Neuro: Awake, Alert and Oriented
Psych: Calm
A/P:
Intractable N/V
Blood Streaked Emesis
GERD
- GI input appreciated
-Continue PPI and Carafate
-CLD-->NPO--> CLD-->FL--> low residue diet today and tolerating well. Plan to discharge today
-Avoid narcotics but resume his OP Subutex to avoid withdrawal
-If worsens may need to implement opiate withdrawal
-Anabolics have demonstrated slight increased risk of a fib, vte, and daphney but can resume upon d/c
Leukocytosis
-Reactive
-WBC 19---> 11
Benign Hypertension
- Improved
- Hold lisinopril for now (see below).
- Begin amlodipine and adjust dose as needed.
- Hydralazine as needed for very high BPs.
DAPHNEY
-Creatinine 1.1
-Continue IV fluids but decrease rate--> stop fluids
-Creatinine 1.6 upon admission
-Avoid nephrotoxic
Hypercalcemia
Resolved with fluids
DM-II
- Currently diet-controlled. Prescribed metformin but does not take this as he feels it exacerbates his GERD.
- Patient has DEXCOM and notes that glucose has been well-controlled on no medication (even before beginning Ozempic).
- Hold Ozempic as noted above. Continue to hold and discuss with provider as outpatient.
- Follow glucose and cover with SSI as needed.
- Check A1C--> 7.7
DVT Prophylaxis: SCDs
Code Status: Full
Anticipated Discharge: Today
Subjective/Interval History
-
Date of Service: June 17, 2024
Patient feels better today. No nausea or vomiting. Tolerating diet
Objective Data
-
Vital Signs:
Vital Signs
Temp Pulse Resp BP Pulse Ox
98.3 F 86 18 174/83 97
06/17/24 07:20 06/17/24 07:20 06/17/24 07:20 06/17/24 07:20 06/17/24 07:20
I&O
06/16/24 06/17/24 06/18/24
06:59 06:59 06:59
Intake Total 1740 / 1740 1375 / 1375
Output Total 1545 / 1545
Balance 195 / 195 1375 / 1375
[2024-06-17 11:07] LABS: Glucose - Point of Care 166 mg/dl (70-99)
[2024-06-17] MEDS: NOVOLOG FLEXPEN-LOW RESISTANCE 1 UNITS SC (11:32)
--- NOTE | 2024-06-17 14:49 | W.DCSUMMARY ---
Discharge Summary
Discharge Data
Date of Admission: 06/15/24
Date of Discharge: 06/17/24
-
Pending Results: No
Hospital Course
Patient 54-year-old male with history of hypertension, hyperlipidemia, GERD, neuropathy, anxiety, diabetes, who was started recently on Ozempic a few months ago and recently increased doses and came into the hospital with persistent nausea and
vomiting. Patient does have a history of drug abuse in the past but currently on Suboxone and he had a urine toxicology that shows only the medication that he is on. He is also taking testosterone and anabolic steroids as outpatient for
bodybuilding that he will resume as outpatient. GI was consulted. Patient was treated symptomatically with antiemetics, fluids, and supportive care. Patient did well and was able to tolerate diet that was advanced slowly. PPI and sucralfate was
given to patient. Patient feels back to his normal. He is going to be discharged in stable condition today
Discharge Plan
-
Patient Disposition: Home (Routine Discharge)
Discharge Diagnosis/Procedures: Nausea and vomiting. Ozempic use adverse effect. Chronic pain narcotic dependence.
Condition: Good
Diet: Low Cholesterol
Blood Work: Please PCP to order CBC, BMP within 1 week
Referrals:
Primary care, provider [Other] (Please see less than 1 week)
Prescriptions:
New
sucralfate 1 gram Tablet
1 g PO ACHS 14 Days Qty: 56 0RF
buprenorphine HCl 8 mg Tablet, Sublingual
8 mg sublingual BID Qty: 0 0RF
Continued
lisinopril 10 mg Tablet
10 mg PO DAILY
quetiapine [Seroquel] 50 mg Tablet
100 mg PO HS
omeprazole 20 mg Tablet,Delayed Release (Dr/Ec)
20 mg PO DAILY
Discontinued
Ozempic 1 mg/dose (4 mg/3 mL) Pen Injector
1 mg SC QWEEK
Discharge Orders:
Discharge Patient (As Directed); Ordered 06/17/24
Ordered By: Adam Weinstein
Discharge Date and Time
Discharge Date/Time: 06/17/24 16:00
Print Language: ITALIAN
--- NOTE | 2024-06-17 15:00 | CM ---
Patient discharged today to home.
No needs identified.
Resources given to him regarding food insecurities. ([place] [facility])
PLAN: Discharge to home. No needs.
[2024-06-17 15:01] VITALS: BP 193/110
[2024-06-17] MEDS: APRESOLINE 10 MG IV (15:10)
[2024-06-17 15:44] VITALS: BP 134/87
--- NOTE | 2024-06-17 15:47 | PTCARENOTE ---
Pt tolerated full liquids for breakfast. Advanced to low residue and ate 60% of lunch. No GI issues. BP elevated at time of discharge - hospitalist contacted and gave dose of IV hydralazine before leaving. BP - 134/87.
== END 2024-06-17 16:00 | disposition home or self-care (01) ==
LOC: 4 WEST ACU 01:21
PROVIDERS: Nurse Practitioner; ADMITTING PHYSICIAN Hospitalist; ATTENDING PHYSICIAN Hospitalist; CONSULT PHYSICIAN Internal Medicine; EMERGENCY PHYSICIAN Emergency Medicine
DX: K92.0 Hematemesis (principal); K21.9 Gastro-esophageal reflux disease without esophagitis; R23.2 Flushing; R61 Generalized hyperhidrosis; T50.995A Adverse effect of other drugs, medicaments and biological substances, initial encounter; Y92.9 Unspecified place or not applicable; R07.89 Other chest pain; D72.829 Elevated white blood cell count, unspecified; E83.52 Hypercalcemia; G89.29 Other chronic pain; F11.20 Opioid dependence, uncomplicated; F32.A Depression, unspecified; F41.9 Anxiety disorder, unspecified; I12.9 Hypertensive chronic kidney disease with stage 1 through stage 4 chronic kidney disease, or unspecified chronic kidney disease; E11.22 Type 2 diabetes mellitus with diabetic chronic kidney disease; E11.40 Type 2 diabetes mellitus with diabetic neuropathy, unspecified; F17.210 Nicotine dependence, cigarettes, uncomplicated; N18.9 Chronic kidney disease, unspecified; N17.9 Acute kidney failure, unspecified; E78.00 Pure hypercholesterolemia, unspecified; F14.10 Cocaine abuse, uncomplicated; K44.9 Diaphragmatic hernia without obstruction or gangrene; K40.90 Unilateral inguinal hernia, without obstruction or gangrene, not specified as recurrent; Z79.85 Long-term (current) use of injectable non-insulin antidiabetic drugs; Z79.52 Long term (current) use of systemic steroids
CPT/HCPCS: 71045; 74177; 80048; 80053; 80306; 80307; 82248; 82962; 83036; 83690; 84484; 85025; 85027; 86850; 86900; 86901; 87070; 93005; 96361; 96374; 96375; 97161; 97165; 99291; 99406; G0378; Q9967